=== PATIENT | male | born 1955 | race Caucasian/White ===

== ENCOUNTER 2019-03-08 07:38 | Day surgery (SDC) | payer OTHER ==
[2019-03-08] MEDS ORDERED: Xylocaine-Mpf 2% 5 Ml Vial IJ ONE (07:39)
[2019-03-08] MEDS ORDERED: Ketamine HCl 50 MG/ML IV ONE (07:39)
[2019-03-08] MEDS ORDERED: Depo-Medrol 40 MG/ML IM ONE (07:39)
[2019-03-08] MEDS ORDERED: DIPRIVAN 200 MG/20 ML IV ONE (07:39)
--- NOTE | 2019-03-08 10:57 | XRAY ---
Indication: Bilateral L4-S1 MBB. Intraoperative fluoroscopy was provided for 7 seconds. Single digital spot image submitted for interpretation demonstrates posterior needle tips projecting over the expected course of the left and right L4-S1 nerve roots. Correlate with intraoperative findings/report.
--- NOTE | 2019-03-08 11:02 | XRAY ---
7 seconds fluoroscopy tie in surgery for bilateral L4-S1 MBB.
[2019-03-08] MEDS ORDERED: Lactated Ringers 1,000 ML IV ONE (13:29)
== END 2019-03-08 10:15 | disposition home or self-care (01) ==
LOC: SDC-PAIN 07:38
PROVIDERS: ATTEND Psychiatry & Neurology Pain Medicine
DX: M47.816 Spondylosis without myelopathy or radiculopathy, lumbar region (principal); E11.9 Type 2 diabetes mellitus without complications; M10.9 Gout, unspecified
CPT/HCPCS: 64493; 64494; 72020; 77002; 82962; J1030; J2704

== ENCOUNTER 2019-04-19 09:50 | Day surgery (SDC) | payer OTHER ==
[2019-04-19] MEDS ORDERED: Marcaine 0.5% SDV 10 ML IJ ONE (09:51)
[2019-04-19] MEDS ORDERED: Depo-Medrol 40 MG/ML IM ONE (09:51)
[2019-04-19] MEDS ORDERED: DIPRIVAN 200 MG/20 ML IV ONE (11:02)
[2019-04-19] MEDS ORDERED: Ketamine HCl 50 MG/ML ONE (11:04)
--- NOTE | 2019-04-19 12:29 | XRAY ---
7 seconds fluoroscopy time in surgery for bilateral L4-S1 MBB.
[2019-04-19] MEDS ORDERED: Lactated Ringers 1,000 ML IV ONE (13:11)
== END 2019-04-19 11:23 | disposition home or self-care (01) ==
LOC: SDC-PAIN 09:50
PROVIDERS: ATTEND Psychiatry & Neurology Pain Medicine
DX: M47.816 Spondylosis without myelopathy or radiculopathy, lumbar region (principal); E11.9 Type 2 diabetes mellitus without complications; M10.9 Gout, unspecified; Z79.899 Other long term (current) drug therapy
CPT/HCPCS: 64493; 64494; 72020; 77002; 82962; J1030; J2704

== ENCOUNTER 2019-05-17 09:35 | Day surgery (SDC) | payer OTHER ==
[2019-05-17] MEDS ORDERED: Marcaine 0.5% SDV 10 ML IJ ONE (09:36)
[2019-05-17] MEDS ORDERED: Depo-Medrol 40 MG/ML IM ONE (09:36)
[2019-05-17] MEDS ORDERED: Xylocaine 1% Vial 30 ML PF IJ ONE (09:36)
[2019-05-17] MEDS ORDERED: DIPRIVAN 200 MG/20 ML IV ONE (10:41)
[2019-05-17] MEDS ORDERED: Ketamine HCl 50 MG/ML ONE (10:41)
--- NOTE | 2019-05-17 11:20 | XRAY ---
Indication: Right L4-S1 RFA. Intraoperative fluoroscopy was provided for 16 seconds. 2 digital spot images submitted for interpretation demonstrates posterior needle tips projecting over the expected course of the right L4-S1 nerve roots. Correlate with intraoperative findings/report.
--- NOTE | 2019-05-17 11:23 | XRAY ---
16 seconds fluoroscopy time in surgery for right L4-S1 RFA.
[2019-05-17] MEDS ORDERED: Lactated Ringers 1,000 ML IV ONE (15:24)
== END 2019-05-17 11:15 | disposition home or self-care (01) ==
LOC: SDC-PAIN 09:35
PROVIDERS: ATTEND Psychiatry & Neurology Pain Medicine
DX: M47.816 Spondylosis without myelopathy or radiculopathy, lumbar region (principal); E11.9 Type 2 diabetes mellitus without complications; M10.9 Gout, unspecified; Z79.899 Other long term (current) drug therapy
CPT/HCPCS: 64635; 64636; 72100; 77002; 82962; J1030; J2001; J2704

== ENCOUNTER 2019-05-31 09:26 | Day surgery (SDC) | payer OTHER ==
[2019-05-31] MEDS ORDERED: Xylocaine 1% Vial 30 ML PF IJ ONE (09:27)
[2019-05-31] MEDS ORDERED: Depo-Medrol 40 MG/ML IM ONE (09:27)
[2019-05-31] MEDS ORDERED: Marcaine 0.5% SDV 10 ML IJ ONE (09:27)
[2019-05-31] MEDS ORDERED: DIPRIVAN 200 MG/20 ML IV ONE (10:39)
[2019-05-31] MEDS ORDERED: Ketamine HCl 50 MG/ML ONE (10:39)
--- NOTE | 2019-05-31 12:59 | XRAY ---
Indication: Left L4-S1 RFA. Intraoperative fluoroscopy was provided for 19 seconds. 3 digital spot images submitted for interpretation demonstrates posterior needle tips projecting over the expected course of the left L4-S1 nerve roots. Correlate with intraoperative findings/report.
--- NOTE | 2019-05-31 13:04 | XRAY ---
19 seconds fluoroscopy time in surgery for left L4-S1 RFA.
[2019-05-31] MEDS ORDERED: Lactated Ringers 1,000 ML IV ONE (13:21)
== END 2019-05-31 11:08 | disposition home or self-care (01) ==
LOC: SDC-PAIN 09:26
PROVIDERS: ATTEND Psychiatry & Neurology Pain Medicine
DX: M47.816 Spondylosis without myelopathy or radiculopathy, lumbar region (principal); E11.9 Type 2 diabetes mellitus without complications; M10.9 Gout, unspecified; F32.9 Major depressive disorder, single episode, unspecified; Z79.899 Other long term (current) drug therapy
CPT/HCPCS: 64635; 64636; 72100; 77002; J1030; J2001; J2704

== ENCOUNTER 2020-02-07 07:57 | Day surgery (SDC) | payer MEDICARE ==
[2020-02-07] MEDS ORDERED: Xylocaine 1% Vial 30 ML PF IJ ONE (07:58)
[2020-02-07] MEDS ORDERED: Sodium Chloride 0.9(Preservative Free) 10 ML IJ ONE (07:58)
[2020-02-07] MEDS ORDERED: Depo-Medrol 40 MG/ML IM ONE (07:58)
[2020-02-07] MEDS ORDERED: Ketamine HCl 50 MG/ML ONE (09:49)
[2020-02-07] MEDS ORDERED: DIPRIVAN 200 MG/20 ML IV ONE (09:49)
--- NOTE | 2020-02-07 10:33 | XRAY ---
Indication: Lumbar EVANS. Intraoperative fluoroscopy was provided for 10 seconds. 2 digital spot images submitted for interpretation demonstrates posterior midline needle tip projecting just posterior to the L3-L4 interspace. Small amount of contrast injected for needle tip placement. Correlate with intraoperative findings/report.
--- NOTE | 2020-02-07 11:19 | XRAY ---
10 seconds fluoroscopy time in surgery for lumbar EVANS.
[2020-02-07] MEDS ORDERED: Lactated Ringers 1,000 ML IV ONE (13:48)
== END 2020-02-07 10:15 | disposition home or self-care (01) ==
LOC: SDC-PAIN 07:57
PROVIDERS: ATTEND Psychiatry & Neurology Pain Medicine
DX: M54.16 Radiculopathy, lumbar region (principal); E11.9 Type 2 diabetes mellitus without complications; M10.9 Gout, unspecified; F41.8 Other specified anxiety disorders; Z79.899 Other long term (current) drug therapy
CPT/HCPCS: 62323; 72100; 77003; 82962; J1030; J2001; J2704; Q9966

== ENCOUNTER 2020-02-28 08:38 | Day surgery (SDC) | payer MEDICARE ==
[2020-02-28] MEDS ORDERED: Marcaine 0.5% SDV 10 ML IM ONE (08:39)
[2020-02-28] MEDS ORDERED: Depo-Medrol 40 MG/ML IM ONE (08:39)
[2020-02-28] MEDS ORDERED: Ketamine HCl 50 MG/ML ONE (09:55)
[2020-02-28] MEDS ORDERED: DIPRIVAN 200 MG/20 ML IV ONE (09:55)
--- NOTE | 2020-02-28 10:55 | XRAY ---
Indication: Left SI joint injection. Intraoperative fluoroscopy was provided for 9 seconds. 2 digital spot images submitted for interpretation demonstrates posterior needle tip projecting over the inferior left SI joint. Correlate with intraoperative findings/report.
--- NOTE | 2020-02-28 11:23 | XRAY ---
9 seconds fluoroscopy time in surgery for left SI joint injection.
[2020-02-28] MEDS ORDERED: Lactated Ringers 1,000 ML IV ONE (14:44)
== END 2020-02-28 10:18 | disposition home or self-care (01) ==
LOC: SDC-PAIN 08:38
PROVIDERS: ATTEND Psychiatry & Neurology Pain Medicine
DX: M46.1 Sacroiliitis, not elsewhere classified (principal); M53.3 Sacrococcygeal disorders, not elsewhere classified; E11.9 Type 2 diabetes mellitus without complications; M10.9 Gout, unspecified; Z79.899 Other long term (current) drug therapy
CPT/HCPCS: 72020; 77002; 82962; G0260; 27096; J1030; J2704